=== PATIENT | male | born 2000 | race Caucasian/White ===

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

== ENCOUNTER 2021-06-16 23:06 | Emergency (ER) | payer OTHER ==
[~2021-06-16] VITALS: Ht 182.9 cm; Wt 108.9 kg
[2021-06-16 23:20] VITALS: BP 143/76
--- NOTE | 2021-06-16 23:20 | NUR ---
to bed ambulatory
--- NOTE | 2021-06-16 23:25 | NUR ---
RECEIVED PT IN BED 12 WITH C/O chest pain which STARTED AT 2300. " i was asleep and it woke me up" skin is warm and dry
--- NOTE | 2021-06-16 23:35 | NUR ---
EKG IN PROGRESS
[2021-06-16] MEDS ORDERED: KETOROLAC 30 MG/ML VIAL IM ONE (23:40)
--- NOTE | 2021-06-16 23:42 | NUR ---
MEDICATED ORDERED FOR PAIN
--- NOTE | 2021-06-16 23:58 | NUR ---
PATIENT RETURNED FROM XRAY.
--- NOTE | 2021-06-16 23:58 | NUR ---
RETURNED FROM X-RAY
--- NOTE | 2021-06-17 01:00 | NUR ---
RESTING COMFORTABLY IN NAD. DENIES PAIN OR DISCOMFORT AT THIS TIME
[2021-06-17] MEDS ORDERED: NAPR-54 PO (01:18)
[2021-06-17 01:23] VITALS: BP 143/76
== END 2021-06-17 01:23 | disposition home or self-care (01) ==
LOC: MED 23:06
DX: R07.89 Other chest pain (principal); M54.9 Dorsalgia, unspecified; Z79.899 Other long term (current) drug therapy
CPT/HCPCS: 71046; 93005; 96372; 99283; J1885